=== PATIENT | male | born 1990 | race Caucasian/White ===

== ENCOUNTER 2023-05-04 09:42 | Day surgery (SDC) | payer BC ==
[2023-05-01 14:02] VITALS: BMI 34.7
[2023-05-04] MEDS ORDERED: Bupivacaine PF 0.5% 30 ML VIAL ONE (11:43)
[2023-05-04] MEDS ORDERED: Rocuronium Bromide 10 MG/ML (10ML VIAL) ONE (11:52)
[2023-05-04] MEDS ORDERED: PROPOFOL 40 ML ONE (11:52)
[2023-05-04] MEDS ORDERED: Midazolam HCl 2 mg/2 ml Vial ONE (11:52)
[2023-05-04] MEDS ORDERED: Dexamethasone 4 mg/ml Vial ONE (11:52)
[2023-05-04] MEDS ORDERED: Lidocaine 2% PF 5 ML VIAL ONE (11:52)
[2023-05-04] MEDS ORDERED: Fentanyl 250 MCG/5 ML VIAL ONE (11:52)
[2023-05-04] MEDS ORDERED: CEFAZOLIN 2 GM VIAL ONE (12:05)
[2023-05-04] MEDS ORDERED: Ondansetron PF 4 MG/2 ML Vial ONE (12:25)
[2023-05-04] MEDS ORDERED: Ketorolac Tromethamine 30 MG/ML VIAL ONE (12:30)
[2023-05-04] MEDS ORDERED: Sevoflurane 250 ML INH ANEST BOTTLE ONE (13:19)
== END 2023-05-04 15:05 | disposition home or self-care (01) ==
LOC: CSHSDC 09:42
PROVIDERS: ATTEND Podiatrist Foot & Ankle Surgery
PROC: 0QSN04Z Reposition Right Metatarsal with Internal Fixation Device, Open Approach (ICD-10-PCS; principal; 2023-05-04)
PROC: 0QBN0Z2 Excision of Right Metatarsal, Sesamoid Bone(s) 1st Toe, Open Approach (ICD-10-PCS; principal; 2023-05-04)
DX: M20.11 Hallux valgus (acquired), right foot (principal); M21.611 Bunion of right foot
CPT/HCPCS: C1713; C1769; C1776; J1100; J1885; J2001; J2250; J2405; J2704; J3010; S0020